=== PATIENT | male | born 1940 | race Caucasian/White ===

== ENCOUNTER → 2017-08-07 11:04 | Outpatient (CLI) | payer MEDICARE, OTHER, SELFPAY ==
--- NOTE | 2017-08-07 | DI.RAD.S_ITS ---
PROCEDURE: FL BARIUM SWALLOW W SPEECH INDICATIONS: Dysphagia TECHNIQUE: Examination was conducted in conjunction with speech pathology per standard protocol. In the lateral projection, filming was performed of the patient swallowing. AP projection filming may also be performed with patient swallowing. COMPARISON: None. FINDINGS: Function: The oral preparatory phase appears normal, with proper containment. The subsequent oral propulsive phase, pharyngeal phase, and esophageal phase of swallowing also appear normal with all proffered substances. No laryngotracheal penetration or aspiration. No pathologic vallecular pooling. Morphology: No cricopharyngeal bar is identified. No cervical esophageal webs. No Zenker's diverticulum. No strictures. IMPRESSION: Normal barium swallow evaluation. Please refer to the speech pathology notes for further details. Dictated by: Bryson Hugo M.D. on 08/07/2017 at 13:43 Approved by: Bryson Hugo M.D. on 08/07/2017 at 13:44
--- NOTE | 2017-08-07 13:36 | ST.SWALLOW ---
Stan Arreaga MD Attending Provider Physician Specialty: Ear, Nose, Throat Address: [address] [place] [address], [id number] Email: Speech Pathology Modified Barium Swallow Study Modified Barium Swallow Study Start: 08/07/17 12:54 Freq: Status: Active Protocol: Document 08/07/17 13:05 MRM (Rec: 08/07/17 13:36 MRM [id number]) Modified Barium Swallow Study Total Time Visit Start Time 11:30 Visit Stop Time 12:30 Total Visit Minutes [address] Arreaga Reason for Referral Cough;dysphagia Setting Setting Outpatient Care Patient Information Identification Type Name Other Patient History Patient is a 77 year old male with a history of left posterior parietal CVA. He is very hard of hearing. His was present to review medical history prior to the study and to receive education regarding the results and recommendations post-study. Per medical records, the patient has coughing with each meal as well as sleep apnea. His is concerned that he may be aspirating with meals. She also reported that the patient has a tendency to inhale or slurp his food when he is eating. The patient explained that he does this because he is right-handed and has right-sided weakness, especially in his hand, remaining from the CVA. He is worried that he will drop his utencil and is in a hurry to eat. As a result, he tries to slurp his food before he drops it. Patient's reported that he occasionally sneezes food/liquid out his nose and that sometimes after a meal, he experiences a fit of hiccoughs (sometimes 6 in a row). This has been happening since the CVA. The patient's reported that he did participate in outpatient occupational therapy after the CVA, but that the initiation of this was late and he did not improve very much. He is currently tolerating a regular diet with thin liquids , taking medication in water. He is present today to participate in an MBS to determine the nature and safety of his swallow function . Subjective Observations Patient arrived early for his appointment, accompanied by his , who was present to provide medical history (due to the patient's significant hearing loss). She also received significant education after the study. No complaints of pain pre/post study. UNDERWRITING OPERATIONS MANAGER was able to successfully communicate with the patient by speaking slowly and loudly. The patient participated in the study without difficulty. Patient Positioning Position View Lateral Imaging Lateral View Textures Administered Trials Presented Thin Liquid via Cup Thin Liquid via Straw Dysphagia Blenderized Textures Dysphagia Advanced Textures Regular Textures Barium Tablet Oral Phase Source: MBSIMP (TM) (C) Bolus Specific Scoring Grid Lip Closure No Impairment (WNL) Tongue Control During Bolus Hold Minimal Impairment Bolus Prep/Mastication WFL Bolus Transport/Lingual Motion Minimal Impairment A/P Lingual Propulsion Delay No Oral Residue Mild Impairment Residue Clearing Moderate Impairment Nasal Regurgitation No: Observed mild residue at velum tip and at velum/PPW Additional Oral Phase Observations Mild oral impairment, observed with mild loss of bolus during swallow initiation. Observed mild amount of liquid to fall under posterior tongue base in oral cavity during the swallow. Pharyngeal Phase Source: MBSIMP (TM) (C) Bolus Specific Scoring Grid Delayed Initiation of Pharyngeal Swallow No Soft Palate Elevation WFL Tongue Base Strength/Range of Motion Mild Impairment Residue Along the Tongue Base Yes Clearance of Residue Along Tongue Base Moderate Impairment Laryngeal Elevation Minimal Impairment Anterior Hyoid Movement Minimal Impairment Epiglottic Range of Motion WFL Vallecular Residue Yes: Observed most significantly with thin liquids Clearance of Vallecular Residue Mild Impairment Laryngeal Vestibular Closure WFL Pharyngeal Stripping Wave WFL Pharyngeal Contraction WFL Posterior Pharyngeal Wall Residue Yes Clearance of Posterior Pharyngeal Wall WFL Residue Upper Esophageal Sphincter Opening WFL Residue in the Pyriform Sinuses Yes Clearance of Residue in the Pyriform WFL Sinuses Esophageal Clearance Upright Position WFL Pharyngoesophageal Backflow Observed No Additional Pharyngeal Phase Observations No penetration or aspiration observed. Mild pharyngeal impairment. Observed reduced tongue base strength and reduced hyolaryngeal excursion with thin liquids, allowing moderate lingual/vallecular residue to remain after the swallow. Additional dry swallows mildly successful in clearing this residue. Residue observed most significantly with thin liquids. More solid textures were able to remain together in a bolus and pass through oropharynx without significant residue remaining due to improved hyolaryngeal excursion with solids. With thin liquids and applesauce, observed mild residue collecting at tip of velum and along the upper posterior pharyngeal wall ( directly across from tip of velum). While no nasal regurgitation was observed, it is possible that over the course of a meal, this residue could be sneezed out if it continued to regurgitate into the nasal passage. Observed flash spillage into pyriform sinuses with thin liquids, however, no penetration or aspiraiton observed throughout the study. Also observed what resembled a cervical osteophyte at the level of C-5. Please see Radiologist's report for further details. A/P View Esophageal Observations Esophageal Function No significant esophageal findings. Please see Radiologist's report for further details. Clinical Impressions Dysphagia Type Mild oropharyngeal dysphagia Findings Reduced hyolaryngeal excursion observed most significantly with thin liquids, allowing moderate residue to collect on lingual surface, in the valleculae and in the pyriform sinuses after multiple swallows of thin liquids. With more solid textures, the patient began to implement a more effortful swallow response, improving hyolaryngeal excursion, which consequently improved epiglottic inversion and tongue base strength, reducing oropharyngeal residue. No penetraiton or aspiraiton observed. Patient had difficulty clearing residue of thin liquid from dry swallows , but the residue resolved with additional trials. No difficulty observed taking barium tablet with water. UNDERWRITING OPERATIONS MANAGER reviewed results of the study in length with the patient and his . UNDERWRITING OPERATIONS MANAGER also provided recommendations and strengthening exercises for the patient to perform at home . It is recommended that he return for outpatient speech therapy to improve oropharyngeal strength and re- educate regarding safe swallowing behavior. He may also be a good candidate for outpatient occupational therapy due to his continued difficulty with hand fine motor skills, especially with self-feeding. Also recommend referral to GI to investigate fits of hiccoughing and rule out any further issues. Rehabilitation Potential Excellent Patient Appropriate for Therapy Yes Recommendations Diet Liquids Order Thin Diet Order Regular Medication Recommendation As Tolerated Additional Dietary Needs Encourage to Self-Feed Reminders to Use Strategies Aspiration Precautions Recommended Precautions Upright at 90 Degrees Alternate Liquids/Solids Frequent Rest Periods Small Bites/Sips Effortful Swallow Davis Maneuvor Additional Precautions Slow rate of intake/small bites and sips/do not inhale during swallowing Treatment Plan Therapy Recommendations Outpatient Speech Therapy Base of Tongue Exercises Additional Therapy Recommendations Pharyngeal strengthening exercises Recommended Referrals GI Consult ENT Consult Occupational Therapy Additional Recommended Referrals OT consult warranted due to ongoing difficulty with fine motor skills Compensatory Strategies Recommendations Mendelsonn Maneuver Small Bites and Sips Alternate Liquids/Solids Short Term Goals Patient will implement written strengthening exercuses recommended by speech therapist. Net Repairer Goals Patient will follow up for further skilled services through outpatient speech therapy and outpatient occupational therapy to address issues remaining from previous CVA. Placement Recommendation After Discharge Home UNDERWRITING OPERATIONS MANAGER Oral Motor Exam Start: 08/07/17 12:54 Freq: Status: Active Protocol: Document 08/07/17 12:55 MRM (Rec: 08/07/17 13:00 MRM [id number]) Oral Motor Examination Face Facial Symmetry Right Side Asymmetry Facial Movement Controlled Comments Mild right facial droop, observed most with labial droop. Mouth Teeth Characteristics Dental Appliance Pucker Lips Reduced ROM Smile Reduced ROM Puff Cheeks Reduced Strength Tongue Size Normal Comments Mild right sided weakness and droop, secondary to CVA Tongue Movement Protrusion/Retraction Strength WFL Protrusion/Retraction Coordination WFL Elevation/Depression Strength WFL Elevation/Depression Coordination WFL Lateralization Strength WFL Lateralization Coordination WFL Palate Soft Palate Description Normal Normal Arch Normal Symmetry Hard Palate Description Normal Normal Arch Normal Symmetry Velopharyngeal Movement Normal Hyolaryngeal Movement Hyolaryngeal Movement Normal Elevation Normal Excursion Reduced Excursion Hyolaryngeal Movement Comments WFL Volitional Cough/Swallow Comments Cough/throat clear productive
== END ==
PROVIDERS: Family Provider Family Medicine; PCP Family Medicine; Visit Provider Otolaryngology
DX: R13.10 Dysphagia, unspecified (principal)
CPT/HCPCS: 74230; 92611